=== PATIENT | female | born 1950 | race Caucasian/White ===

== ENCOUNTER 2024-02-22 20:36 | Emergency (ER) | payer MEDICAID, OTHER ==
[~2024-02-22] VITALS: Ht 170.2 cm; Wt 86.1 kg
[2024-02-22 21:18] VITALS: BP 125/77; PULSE 86; RESP 16; O2SAT 94
== END 2024-02-22 23:37 | disposition left against medical advice (07) ==
LOC: ER 20:36
DX: R10.11 Right upper quadrant pain (principal); R10.12 Left upper quadrant pain; R10.31 Right lower quadrant pain; R10.32 Left lower quadrant pain; Z53.21 Procedure and treatment not carried out due to patient leaving prior to being seen by health care provider

== ENCOUNTER 2024-02-23 06:46 | Inpatient (IN) | payer OTHER ==
[~2024-02-23] VITALS: Ht 170.2 cm; Wt 87.4 kg
[2024-02-23] MEDS: SODIUM CHLORIDE 0.9% 1,000 ML IV ONE (07:45)
[2024-02-23 08:02] VITALS: PULSE 61; RESP 18; O2SAT 97
[2024-02-23] MEDS: ONDANSETRON HCL 4 MG/2 ML VIAL IV ONE ×2 (08:09→12:19)
[2024-02-23] MEDS: MORPHINE SULFATE INJ 2 MG/ml SYRG IV ONE (08:09)
[2024-02-23 08:23] LABS: Basophils # (auto) 0 10 ^3/uL (0-0.2); Basophils % (auto) 0.4 % (0.0-2.0); Eosinophils # (auto) 0 10 ^3/uL (0-0.8); Eosinophils % (auto) 0.4 % (0.0-7.0); Hematocrit 44.8 % (36.0-46.0); Lymphocytes # (auto) 1.3 10 ^3/uL (0.4-5.4); Lymphocytes % (auto) 16.6 % (10.0-50.0); Mean Corpuscular Hemoglobin 29.2 pg (28.0-32.0); Mean Corpuscular Hgb Conc. 33.5 g/dL (32.0-36.0); Monocytes # (auto) 0.6 10 ^3/uL (0-1.3); Monocytes % (auto) 7.9 % (0.0-12.0); Neutrophils # (auto) 5.8 10 ^3/uL (1.6-8.6); Neutrophils % (auto) 74.7 % (37.0-80.0); Nucleated Red Blood Cells % 0.2 %; Platelet Count (auto) 173 10^3/uL (140-450); Red Blood Cells 5.15 10^6/uL (4.0-5.20); Red Cell Distribution Width 15.2 % (11.8-14.3); White Blood Cell 7.7 10^3/uL (4.4-10.8)
[2024-02-23 08:46] LABS: Alanine Aminotransferase 16 U/L (7-40); Albumin 4.4 g/dL (3.2-4.8); Alkaline Phosphatase 66 U/L (46-116); Anion Gap 9 (5-15); Aspartate Aminotransferase 15 U/L (13-40); BUN/Creatinine Ratio 11.6 (10.0-20.0); Blood Urea Nitrogen 8 mg/dL (9-23); Calcium 9.1 mg/dL (8.7-10.4); Carbon Dioxide 25 mmol/L (20-30); Chloride 106 mmol/L (98-107); Glucose 112 mg/dL (74-106); Lipase 35 U/L (12-53); Potassium 3.5 mmol/L (3.5-5.1); Sodium 140 mmol/L (136-145)
[2024-02-23 08:47] LABS: Bilirubin, Total 0.8 mg/dL (0.2-1.0); Total Protein 6.6 g/dL (5.7-8.2)
[2024-02-23 09:31] LABS: Urine Bacteria None Seen /hpf (None Seen)
[2024-02-23 10:00] LABS: Urine Amorphous Crystal FEW /hpf (None Seen); Urine Blood Negative /uL (Negative); Urine Clarity Ex.Turbid (Clear); Urine Color Light-Orange (Yellow); Urine Mucus FEW (None Seen); Urine Protein, UAD TRACE (Negative); Urine Specific Gravity 1.025 (1.001-1.035); Urine Urobilinogen Normal (Negative); Urine WBC 81 /hpf (0 - 5); Urine pH 5.5 (5.0-9.0)
[2024-02-23] MEDS: MORPHINE SULFATE 4 MG/ML SYR/VIAL IV ONE (12:20)
[2024-02-23] MEDS: PIPERACILLIN-TAZOB 3.375GM 100 ML IV ONE (13:25)
[2024-02-23] MEDS ORDERED: DOCUSATE SOD 100 MG CAP PO PRN (17:45)
[2024-02-23 19:34] VITALS: PULSE 61; RESP 16; O2SAT 98
[2024-02-23] MEDS: PIPERACILLIN-TAZOB 3.375GM 100 ML IV SCH (20:28)
[2024-02-23] MEDS: SODIUM CHLOR 0.9% PF (SALINE LOCK) 10ML VIAL/SYR IV SCH (22:06)
[2024-02-23 22:32] VITALS: BP 136/68; PULSE 64; PULSE 74; RESP 17; RESP 18; TEMP 97.9; O2SAT 95; O2SAT 97
[2024-02-24] VITALS (8 sets, daily range): BP systolic 106–142; BP diastolic 55–71; PULSE 57–72; RESP 16–18; TEMP 97.9–98.6; O2SAT 92–98
[2024-02-24 06:27] LABS: Basophils # (auto) 0 10 ^3/uL (0-0.2); Basophils % (auto) 0.6 % (0.0-2.0); Eosinophils # (auto) 0.2 10 ^3/uL (0-0.8); Eosinophils % (auto) 2.8 % (0.0-7.0); Hematocrit 43.5 % (36.0-46.0); Hemoglobin 14.6 g/dL (12.2-16.2); Lymphocytes # (auto) 1.6 10 ^3/uL (0.4-5.4); Lymphocytes % (auto) 28.9 % (10.0-50.0); Mean Corpuscular Hemoglobin 29.5 pg (28.0-32.0); Mean Corpuscular Hgb Conc. 33.6 g/dL (32.0-36.0); Mean Corpuscular Volume 87.9 fL (80.0-100.0); Monocytes # (auto) 0.6 10 ^3/uL (0-1.3); Monocytes % (auto) 11.8 % (0.0-12.0); Neutrophils # (auto) 3.1 10 ^3/uL (1.6-8.6); Neutrophils % (auto) 55.9 % (37.0-80.0); Nucleated Red Blood Cells % 0.1 %; Platelet Count (auto) 153 10^3/uL (140-450); Red Blood Cells 4.95 10^6/uL (4.0-5.20); Red Cell Distribution Width 15.2 % (11.8-14.3); White Blood Cell 5.5 10^3/uL (4.4-10.8)
[2024-02-24 06:28] LABS: Alanine Aminotransferase 46 U/L (7-40); Albumin 3.9 g/dL (3.2-4.8); Alkaline Phosphatase 66 U/L (46-116); Anion Gap 6 (5-15); Aspartate Aminotransferase 41 U/L (13-40); BUN/Creatinine Ratio 9.9 (10.0-20.0); Blood Urea Nitrogen 9 mg/dL (9-23); Calcium 9.3 mg/dL (8.7-10.4); Carbon Dioxide 30 mmol/L (20-30); Chloride 106 mmol/L (98-107); Glucose 103 mg/dL (74-106); Magnesium 2.1 mg/dL (1.6-2.6); Potassium 3.7 mmol/L (3.5-5.1); Sodium 142 mmol/L (136-145)
[2024-02-24 06:29] LABS: Bilirubin, Total 1.1 mg/dL (0.2-1.0); Total Protein 5.9 g/dL (5.7-8.2)
[2024-02-24] MEDS ORDERED: IBUP200C3 PO (09:05)
[2024-02-24] MEDS ORDERED: DIVA250T12 PO ×2 (09:05)
[2024-02-24] MEDS ORDERED: APIX5TAB PO (09:05)
[2024-02-24] MEDS ORDERED: DONE1TAB88 PO (09:05)
[2024-02-24] MEDS ORDERED: QUET100T47 PO (09:05)
[2024-02-24] MEDS ORDERED: LOPE2CAP PO (09:05)
[2024-02-24] MEDS ORDERED: CYAN100L PO (09:05)
[2024-02-24] MEDS: MORPHINE SULFATE INJ 2 MG/ml SYRG IV PRN (11:21)
[2024-02-24] MEDS: ONDANSETRON HCL 4 MG/2 ML VIAL IV PRN (11:27)
[2024-02-24 13:17] LABS: INR 1.09 (0.9-1.15); Partial Thromboplastin Time 26.2 SEC (24.5-34.5); Prothrombin Time 11.5 sec (9.3-11.8)
[2024-02-24] MEDS: LACTATED RINGER'S 1,000 ML IV SCH (13:58)
[2024-02-25] VITALS (9 sets, daily range): BP systolic 109–142; BP diastolic 46–74; PULSE 56–82; RESP 16–21; TEMP 97.8–98.8; O2SAT 90–98
[2024-02-25 06:35] LABS: Alanine Aminotransferase 37 U/L (7-40); Alkaline Phosphatase 65 U/L (46-116); Anion Gap 4 (5-15); BUN/Creatinine Ratio 15.9 (10.0-20.0); Blood Urea Nitrogen 11 mg/dL (9-23); Calcium 9.2 mg/dL (8.7-10.4); Carbon Dioxide 31 mmol/L (20-30); Chloride 107 mmol/L (98-107); Glucose 94 mg/dL (74-106); LDL Cholesterol 141 mg/dL (< 100); Magnesium 1.9 mg/dL (1.6-2.6); Potassium 3.5 mmol/L (3.5-5.1); Sodium 142 mmol/L (136-145); Triglycerides 136 mg/dL (< 150)
[2024-02-25 06:36] LABS: Aspartate Aminotransferase 27 U/L (13-40); Cholesterol 204 mg/dL (< 200); HDL Cholesterol 37 mg/dL (40-59)
[2024-02-25 06:37] LABS: Bilirubin, Total 0.9 mg/dL (0.2-1.0); Total Protein 5.9 g/dL (5.7-8.2)
[2024-02-25 07:00] LABS: Basophils # (auto) 0 10 ^3/uL (0-0.2); Basophils % (auto) 0.5 % (0.0-2.0); Eosinophils # (auto) 0.1 10 ^3/uL (0-0.8); Eosinophils % (auto) 2.2 % (0.0-7.0); Hematocrit 42.3 % (36.0-46.0); Hemoglobin 14.3 g/dL (12.2-16.2); Lymphocytes # (auto) 1.5 10 ^3/uL (0.4-5.4); Lymphocytes % (auto) 24.7 % (10.0-50.0); Mean Corpuscular Hemoglobin 29.6 pg (28.0-32.0); Mean Corpuscular Hgb Conc. 33.8 g/dL (32.0-36.0); Mean Corpuscular Volume 87.5 fL (80.0-100.0); Monocytes # (auto) 0.7 10 ^3/uL (0-1.3); Monocytes % (auto) 11.3 % (0.0-12.0); Neutrophils # (auto) 3.8 10 ^3/uL (1.6-8.6); Neutrophils % (auto) 61.3 % (37.0-80.0); Platelet Count (auto) 150 10^3/uL (140-450); Red Blood Cells 4.83 10^6/uL (4.0-5.20); Red Cell Distribution Width 14.9 % (11.8-14.3); White Blood Cell 6.1 10^3/uL (4.4-10.8)
[2024-02-25] MEDS ORDERED: MIDAZOLAM HCL 2MG/2ML 2ml VIAL (1mg/ml) ONE (09:44)
[2024-02-25] MEDS ORDERED: KETOROLAC TROMETH 30 MG/ML 1ML VIAL ONE (09:44)
[2024-02-25] MEDS ORDERED: HYDROmorphone HCL 2 MG/ML VL/or syr ONE ×2 (09:44→12:20)
[2024-02-25] MEDS ORDERED: fentaNYL CITRATE 100 MCG/2 ML VL ONE (09:44)
[2024-02-25] MEDS ORDERED: KETAMINE 50mg/ML 1ml syringe ONE ×2 (09:44→12:20)
[2024-02-25] MEDS ORDERED: PROPOFOL 10 MG/ML 20 ML IV ONE (09:45)
[2024-02-25] MEDS ORDERED: ONDANSETRON HCL 4 MG/2 ML VIAL ONE (09:45)
[2024-02-25] MEDS ORDERED: LIDOCAINE 2% (LOCAL ANESTH.) PF 5ml SDV ONE (09:45)
[2024-02-25] MEDS ORDERED: ROCURONIUM 10MG/ML 10ML VIAL IV ONE (09:45)
[2024-02-25] MEDS ORDERED: DexAMETHasone SOD PHOS 10MG/1ML VIAL INJ ONE (09:45)
[2024-02-25] MEDS ORDERED: GLYCOPYRROLATE 0.2 MG/ML 1ML VIAL ONE (09:45)
[2024-02-25] MEDS ORDERED: ePHEDrine SULFATE 50 MG/ML AMP ONE (09:45)
[2024-02-25] MEDS ORDERED: MEPERIDINE HCL (25 MG/ML) 1ML VIAL ONE (10:54)
[2024-02-25] MEDS: levoFLOXacin 500MG 100 ML IV ONE (11:22)
[2024-02-25] MEDS: ceFAZolin 1GM VL ONE (12:01)
[2024-02-25] MEDS ORDERED: SUGAMMADEX 200mg/2ml Vial (100MG/ML) IV ONE ×2 (12:17→13:10)
[2024-02-25] MEDS ORDERED: HYDROmorphone HCL 2 MG/ML VL/or syr IV PRN (13:30)
[2024-02-25] MEDS: LORazepam 2MG/ML-1ML VIAL IV PRN (19:04)
[2024-02-26] VITALS (7 sets, daily range): BP systolic 120–139; BP diastolic 52–71; PULSE 45–63; RESP 17–19; TEMP 97.6–98.3; O2SAT 95–98
[2024-02-26] MEDS: diphenhdrAMINE HCL 50 MG/1 ML VL IV PRN (00:10)
[2024-02-26] MEDS: diphenhdrAMINE HCL 50 MG/1 ML VL ONE (00:16)
[2024-02-26 10:34] LABS: Alanine Aminotransferase 33 U/L (7-40); Albumin 3.7 g/dL (3.2-4.8); Alkaline Phosphatase 55 U/L (46-116); Anion Gap 6 (5-15); Aspartate Aminotransferase 26 U/L (13-40); BUN/Creatinine Ratio 14.7 (10.0-20.0); Bilirubin, Total 0.8 mg/dL (0.2-1.0); Blood Urea Nitrogen 10 mg/dL (9-23); Calcium 9.1 mg/dL (8.7-10.4); Carbon Dioxide 30 mmol/L (20-30); Chloride 107 mmol/L (98-107); Glucose 98 mg/dL (74-106); Magnesium 1.9 mg/dL (1.6-2.6); Potassium 3.5 mmol/L (3.5-5.1); Sodium 143 mmol/L (136-145); Total Protein 5.4 g/dL (5.7-8.2)
[2024-02-26 10:48] LABS: Basophils # (auto) 0 10 ^3/uL (0-0.2); Basophils % (auto) 0.3 % (0.0-2.0); Eosinophils # (auto) 0 10 ^3/uL (0-0.8); Eosinophils % (auto) 0.1 % (0.0-7.0); Hematocrit 39.3 % (36.0-46.0); Hemoglobin 13.6 g/dL (12.2-16.2); Lymphocytes # (auto) 1.2 10 ^3/uL (0.4-5.4); Lymphocytes % (auto) 13.9 % (10.0-50.0); Mean Corpuscular Hgb Conc. 34.6 g/dL (32.0-36.0); Mean Corpuscular Volume 86.9 fL (80.0-100.0); Monocytes # (auto) 0.8 10 ^3/uL (0-1.3); Monocytes % (auto) 9.3 % (0.0-12.0); Neutrophils # (auto) 6.7 10 ^3/uL (1.6-8.6); Neutrophils % (auto) 76.4 % (37.0-80.0); Platelet Count (auto) 151 10^3/uL (140-450); Red Blood Cells 4.52 10^6/uL (4.0-5.20); Red Cell Distribution Width 14.9 % (11.8-14.3); White Blood Cell 8.8 10^3/uL (4.4-10.8)
[2024-02-26] MEDS ORDERED: QUEtiapine FUMARATE 25 MG TAB PO ONE (11:00)
[2024-02-26] MEDS ORDERED: APIXABAN 2.5 MG TAB PO ONE (11:00)
[2024-02-26] MEDS: DONEPEZIL HYDROCHLORIDE 5 MG TAB PO SCH (21:00)
[2024-02-26] MEDS: APIXABAN 5 MG TAB PO ONE (21:00)
[2024-02-26] MEDS: QUEtiapine FUMARATE 25 MG TAB PO ONE (21:00)
[2024-02-26] MEDS ORDERED: APIXABAN 5 MG TAB PO SCH (22:00)
[2024-02-27] VITALS (8 sets, daily range): BP systolic 115–146; BP diastolic 53–76; PULSE 47–63; RESP 15–18; TEMP 97.1–98.6; O2SAT 93–98
[2024-02-27 06:58] LABS: Basophils # (auto) 0.1 10 ^3/uL (0-0.2); Eosinophils # (auto) 0.3 10 ^3/uL (0-0.8); Eosinophils % (auto) 4.6 % (0.0-7.0); Hematocrit 40.8 % (36.0-46.0); Hemoglobin 13.8 g/dL (12.2-16.2); Lymphocytes # (auto) 1.8 10 ^3/uL (0.4-5.4); Lymphocytes % (auto) 30.1 % (10.0-50.0); Mean Corpuscular Hemoglobin 29.7 pg (28.0-32.0); Mean Corpuscular Hgb Conc. 33.9 g/dL (32.0-36.0); Mean Corpuscular Volume 87.5 fL (80.0-100.0); Monocytes # (auto) 0.5 10 ^3/uL (0-1.3); Monocytes % (auto) 9.1 % (0.0-12.0); Neutrophils # (auto) 3.3 10 ^3/uL (1.6-8.6); Neutrophils % (auto) 55.2 % (37.0-80.0); Nucleated Red Blood Cells % 0.1 %; Platelet Count (auto) 131 10^3/uL (140-450); Red Blood Cells 4.66 10^6/uL (4.0-5.20); Red Cell Distribution Width 15.1 % (11.8-14.3); White Blood Cell 5.9 10^3/uL (4.4-10.8)
[2024-02-27 07:15] LABS: Alanine Aminotransferase 27 U/L (7-40); Albumin 3.7 g/dL (3.2-4.8); Alkaline Phosphatase 54 U/L (46-116); Anion Gap 10 (5-15); Aspartate Aminotransferase 32 U/L (13-40); Bilirubin, Total 0.8 mg/dL (0.2-1.0); Blood Urea Nitrogen 10 mg/dL (9-23); Carbon Dioxide 28 mmol/L (20-30); Chloride 107 mmol/L (98-107); Glucose 88 mg/dL (74-106); Magnesium 1.9 mg/dL (1.6-2.6); Potassium 3.3 mmol/L (3.5-5.1); Sodium 145 mmol/L (136-145); Total Protein 5.4 g/dL (5.7-8.2)
[2024-02-27] MEDS: ACETAMINOPHEN 325 MG TAB PO PRN (10:39)
[2024-02-27] MEDS: APIXABAN 5 MG TAB PO SCH (10:40)
[2024-02-27] MEDS: QUEtiapine FUMARATE 25 MG TAB PO SCH (20:40)
[2024-02-28] VITALS (7 sets, daily range): BP systolic 107–138; BP diastolic 48–75; PULSE 51–70; RESP 14–20; TEMP 97.9–98.4; O2SAT 92–98
[2024-02-28 06:27] LABS: Basophils # (auto) 0 10 ^3/uL (0-0.2); Basophils % (auto) 0.7 % (0.0-2.0); Eosinophils # (auto) 0.3 10 ^3/uL (0-0.8); Hematocrit 39.1 % (36.0-46.0); Hemoglobin 13.2 g/dL (12.2-16.2); Lymphocytes % (auto) 38.2 % (10.0-50.0); Mean Corpuscular Hemoglobin 29.6 pg (28.0-32.0); Mean Corpuscular Hgb Conc. 33.6 g/dL (32.0-36.0); Mean Corpuscular Volume 87.9 fL (80.0-100.0); Monocytes # (auto) 0.5 10 ^3/uL (0-1.3); Monocytes % (auto) 8.8 % (0.0-12.0); Neutrophils # (auto) 2.4 10 ^3/uL (1.6-8.6); Neutrophils % (auto) 46.3 % (37.0-80.0); Nucleated Red Blood Cells % 0.4 %; Platelet Count (auto) 130 10^3/uL (140-450); Red Blood Cells 4.45 10^6/uL (4.0-5.20); Red Cell Distribution Width 15.1 % (11.8-14.3); White Blood Cell 5.3 10^3/uL (4.4-10.8)
[2024-02-28 06:59] LABS: Alanine Aminotransferase 21 U/L (7-40); Alkaline Phosphatase 48 U/L (46-116); Anion Gap 11 (5-15); BUN/Creatinine Ratio 9.3 (10.0-20.0); Blood Urea Nitrogen 7 mg/dL (9-23); Calcium 8.4 mg/dL (8.7-10.4); Carbon Dioxide 25 mmol/L (20-30); Chloride 106 mmol/L (98-107); Glucose 85 mg/dL (74-106); Magnesium 1.8 mg/dL (1.6-2.6); Sodium 142 mmol/L (136-145)
[2024-02-28 07:00] LABS: Albumin 3.3 g/dL (3.2-4.8); Aspartate Aminotransferase 24 U/L (13-40); Bilirubin, Total 0.9 mg/dL (0.2-1.0)
[2024-02-28] MEDS: POTASSIUM CHL 20MEQ/100ML 100 ML IV SCH (15:12)
[2024-02-28] MEDS ORDERED: HALOPERIDOL LACTATE 5 MG/ML INJ VIAL IM ONE (19:45)
[2024-02-28] MEDS: HALOPERIDOL LACTATE 5 MG/ML INJ VIAL IM PRN (20:05)
[2024-02-29] VITALS (7 sets, daily range): BP systolic 120–150; BP diastolic 60–79; PULSE 51–94; RESP 17–20; TEMP 97.1–98.1; O2SAT 94–98
[2024-02-29 10:31] LABS: Chloride 106 mmol/L (98-107); Potassium 3.4 mmol/L (3.5-5.1); Sodium 142 mmol/L (136-145)
[2024-02-29 10:32] LABS: Anion Gap 8 (5-15); Calcium 9.4 mg/dL (8.7-10.4); Carbon Dioxide 28 mmol/L (20-30)
[2024-02-29 10:37] LABS: BUN/Creatinine Ratio 10.6 (10.0-20.0); Blood Urea Nitrogen 7 mg/dL (9-23); Glucose 82 mg/dL (74-106)
[2024-02-29] MEDS: POTASSIUM CHL 20MEQ/100ML 100 ML IV ONE (12:44)
[2024-02-29] MEDS ORDERED: HALOPERIDOL LACTATE 5 MG/ML INJ VIAL IM ONE (19:15)
[2024-03-01 01:00] VITALS: BP 147/77; PULSE 75; RESP 18; TEMP 97.8; O2SAT 95
[2024-03-01 05:00] VITALS: BP 131/70; PULSE 66; RESP 17; TEMP 97.6; O2SAT 92
[2024-03-01 08:00] VITALS: PULSE 62
[2024-03-01 09:02] VITALS: BP 136/72; PULSE 82; RESP 16; TEMP 98.1; O2SAT 96
[2024-03-01 11:46] LABS: Chloride 108 mmol/L (98-107); Potassium 3.4 mmol/L (3.5-5.1); Sodium 141 mmol/L (136-145)
[2024-03-01 11:47] LABS: Anion Gap 6 (5-15); Calcium 8.8 mg/dL (8.7-10.4); Carbon Dioxide 27 mmol/L (20-30)
[2024-03-01 11:52] LABS: Glucose 86 mg/dL (74-106)
[2024-03-01 11:53] LABS: BUN/Creatinine Ratio 7.4 (10.0-20.0); Blood Urea Nitrogen < 5 mg/dL (9-23)
[2024-03-01 13:00] VITALS: BP 130/72; PULSE 70; RESP 16; TEMP 98; O2SAT 97
[2024-03-01] MEDS: POTASSIUM EFFERVESENT TAB 25 MEQ PO ONE (15:06)
[2024-03-01 16:32] VITALS: BP 140/81; PULSE 75; RESP 17; TEMP 98.2; O2SAT 95
== END 2024-03-01 17:28 | disposition home or self-care (01) | DRG 354 ==
LOC: ER 06:46 → TELE 17:45 → TELE-WESTW 17:45
PROVIDERS: ADMIT Internal Medicine; ATTEND Internal Medicine Geriatric Medicine
PROC: 0WQF0ZZ Repair Abdominal Wall, Open Approach (ICD-10-PCS; principal; 2024-02-25 11:29)
DX: K42.0 Umbilical hernia with obstruction, without gangrene (principal); F01.511 Vascular dementia, unspecified severity, with agitation; N39.0 Urinary tract infection, site not specified; K56.7 Ileus, unspecified; K43.6 Other and unspecified ventral hernia with obstruction, without gangrene; I48.91 Unspecified atrial fibrillation; I10 Essential (primary) hypertension; I34.1 Nonrheumatic mitral (valve) prolapse; Z79.01 Long term (current) use of anticoagulants; Z86.73 Personal history of transient ischemic attack (TIA), and cerebral infarction without residual deficits; Z90.710 Acquired absence of both cervix and uterus; Z90.49 Acquired absence of other specified parts of digestive tract; I25.2 Old myocardial infarction; Z88.1 Allergy status to other antibiotic agents; Z88.0 Allergy status to penicillin
CPT/HCPCS: 36415; 71045; 74018; 74176; 80048; 80053; 80061; 81001; 83690; 83735; 85025; 85610; 85730; 87040; 93306; 96361; 96365; 96366; 96375; 96376; 97110; 97116; 97163; 97530; G0378; J0690; J1100; J1885; J1956; J2001; J2250; J2405; J2543; J2704; J3480